=== PATIENT | female | born 1985 | race Caucasian/White ===

== ENCOUNTER 2021-09-07 11:57 | Emergency (ER) | payer OTHER ==
[~2021-09-07] VITALS: Ht 165.1 cm; Wt 78.1 kg
[2021-09-07 11:59] VITALS: BP 130/74
[2021-09-07] MEDS ORDERED: METH-1165 (12:44)
== END 2021-09-07 15:53 | disposition home or self-care (01) ==
LOC: M ED 11:57
DX: M54.17 Radiculopathy, lumbosacral region (principal); R20.2 Paresthesia of skin; M25.551 Pain in right hip; M25.552 Pain in left hip; M62.830 Muscle spasm of back; G43.909 Migraine, unspecified, not intractable, without status migrainosus; M70.70 Other bursitis of hip, unspecified hip; M79.7 Fibromyalgia; F17.200 Nicotine dependence, unspecified, uncomplicated; Z88.0 Allergy status to penicillin